=== PATIENT | female | born 1985 | race Caucasian/White ===

== ENCOUNTER 2024-12-27 10:55 | Emergency (ER) | payer SELFPAY ==
[2024-12-27 11:05] VITALS: BP 144/84; PULSE 88; RESP 16; TEMP 36.9; O2SAT 98; BMI 30.1
[2024-12-27 13:19] LABS: Eosinophils # 0.1 10^3/uL (0.0-0.8); Eosinophils % 2.9 %; Hematocrit 38.7 % (36-47); Lymphocytes # 0.6 10^3/uL (0.8-4.8); Lymphocytes % 18.4 %; Mean Corpuscular HGB Conc 33.3 g/dL (30-55); Mean Corpuscular Hemoglobin 27.4 pg (27-33); Mean Corpuscular Volume 82.3 fl (85-98); Mean Platelet Volume 10.1 fL (7.4-10.4); Monocytes # 0.2 10^3/uL (0.2-0.9); Monocytes % 7.6 %; Neutrophils # 2.19 10^3/uL (1.8-7.7); Neutrophils % 69.5 %; Nucleated Red Blood Cells % 0 %; Platelet Count 115 10^3/cmm (157-399); Red Cell Distribution Width 12.8 % (12.1-15.1); White Blood Count 3.15 10^3/uL (3.29-11.43)
[2024-12-27 13:23] LABS: HCG, Serum Qual Negative (Negative)
--- NOTE | 2024-12-27 13:23 | W.ED.ABDPA2 ---
Documented by User: [email or web address] Gunn 12/27/24 17:36 HPI - Abdominal Pain General: Chief Complaint: Abdominal Pain Stated Complaint: gall stone stuck in bowel duct Time Seen by Provider: 12/27/24 13:14 Source: patient Mode of arrival: ambulatory Limitations: no limitations History of Present Illness: Patient is a 39-year-old female presents to ED today stating yesterday she was seen at [place] the ED and diagnosed with what sounds like choledocholithiasis. She was recommended transfer for an ERCP but she declined. Patient states she is here at [facility] today hoping we can perform this procedure. Patient states yesterday she was having pain to her right upper quadrant and epigastric region as well as nausea and vomiting. She does not like her pain today is significantly improved. She does still feel nauseous. She has not had any active episodes of vomiting. She has not had fevers. She arrives with stable vital signs. MD elicited complaint: abdominal pain Onset (ago): day(s) Pain Consistency: now resolved (or minimally present) Location: Epigastric Severity: mild Quality: sharp Radiation: none Migration to: no migration Exacerbating factors: nothing Relieving factors: nothing Associated Symptoms: Reports nausea; Denies change in bowel habits, chills, diarrhea, dysuria, fever(s), heartburn, hematemesis and vomiting Related Data Home Medications ?Medication ?Instructions ?Recorded ?Confirmed alprazolam 0.5 mg tablet 0.5 mg PO BID 12/27/24 12/27/24 buprenorphine 2 mg-naloxone 0.5 mg 1 film buccal BID 12/27/24 12/27/24 sublingual film (Suboxone) Allergies Allergy/AdvReac Type Severity Reaction Status Date / Time procaine (From Novocain) Allergy Unknown Verified 12/27/24 11:10 Review of Systems Const: Denies: fever(s), chills, body aches, fatigue or malaise Card: Denies: chest pain Resp: Denies: dyspnea GI: Reports: abdominal pain and nausea; Denies: vomiting, hematemesis, heartburn, diarrhea or change in bowel habits : Denies: flank pain, difficulty voiding, dysuria, urinary frequency, urinary urgency or urinary hesitancy Musc: Denies: neck pain, back pain, extremity pain, extremity swelling, joint pain, joint swelling or joint redness Skin/Breast: Denies: rash Neuro: Denies: headache(s) or dizziness Physical Exam Const: COMMON NORMALS: no acute distress, patient oriented x3, no limitations, alert and well nourished GENERAL APPEARANCE: cooperative ORIENTATION/CONSCIOUSNESS: Yes awake, Yes oriented to person, Yes oriented to place and Yes oriented to time Resp: COMMON NORMALS: normal respiratory effort and clear to auscultation bilaterally AUSCULTATION: clear to auscultation bilaterally Cardio: COMMON NORMALS: regular rate and regular rhythm RATE: regular rate RHYTHM: regular rhythm GI: COMMON NORMALS: Normal to inspection, nondistended, normoactive bowel sounds present, Soft to palpation, No hepatosplenomegaly present and no masses INSPECTION: Yes normal to inspection AUSCULTATION: Yes normoactive bowel sounds PALPATION: Yes Soft to palpation, Yes Tenderness to palpation present (GI) (mild epigastric ), No Guarding due to palpation present (GI), No Rigid due to palpation and Yes No hepatosplenomegaly present : COMMON NORMALS: Yes no CVA tenderness BLADDER/KIDNEY EXAM: Yes no CVA tenderness Back/Pelvis: COMMON NORMALS: no CVA tenderness Neuro: COMMON NORMALS: patient oriented x3 SENSORIUM/ORIENTATION: Yes alert, Yes oriented to person, Yes oriented to place and Yes oriented to time Course Vital Signs: Vital signs: Vital Signs Temperature 98.5 F 12/27/24 11:05 Pulse Rate 88 12/27/24 11:05 Respiratory Rate 16 12/27/24 11:05 Blood Pressure 167/85 12/27/24 13:44 Pulse Oximetry 97 12/27/24 15:02 Oxygen Delivery Me thod Room Air 12/27/24 11:05 MDM - Abdominal Pain Medical Decision Making Patient's ultrasound and labs from [facility] were received. It looks like her gallbladder ultrasound then showed cholelithiasis but with no other acute findings. She had a normal measuring CBD. Her blood work from their visit is similar to today's without any distinguishable increasing or decreasing pattern. Today's ultrasound showing cholelithiasis without evidence for acute cholecystitis. She had no intrahepatic bile duct dilatation. She had a normal common bile duct size. I had discussed with patient all these results with a plan for CT imaging after speaking to Dr. Arteaga. Patient required US IV after multiple failed attempts and during this patient became very upset reporting that nothing had been done for her and she wants to leave as she has a child to get home to. Multiple nurses as well as myself went in room to speak to her. I apologized for any delays she had in her care but that we had performed labs, US, and discussed plan for CT along with general surgery consult if needed. She repeatedly stated she wanted to leave immediately. I asked her if we could get her information regarding follow up but she declines and wants to leave. She signed AMA paperwork prior to leaving. Medical Records I reviewed the patient's medical records. Lab Data I reviewed the patient's lab results. 12/27/24 13:05 12/27/24 13:05 Labs/Radiology: Radiology Impressions Gallbladder Ultrasound 12/27/24 14:22 IMPRESSION: 1. Cholelithiasis without evidence for acute cholecystitis. 2. No intrahepatic bile duct dilatation. Normal size common bile duct. Laboratory Results WBC 3.15 10^3/uL (3.29-11.43) L 12/27/24 13:05 RBC 4.70 10^6/uL (3.85-5.65) 12/27/24 13:05 Hgb 12.90 g/dL (11.27-16.99) 12/27/24 13:05 Hct 38.7 % (36-47) 12/27/24 13:05 MCV 82.3 fl (85-98) L 12/27/24 13:05 MCH 27.4 pg (27-33) 12/27/24 13:05 MCHC 33.3 g/dL (30-55) 12/27/24 13:05 RDW 12.8 % (12.1-15.1) 12/27/24 13:05 Plt Count 115 10^3/cmm (157-399) L 12/27/24 13:05 MPV 10.1 fL (7.4-10.4) 12/27/24 13:05 Neut % (Auto) 69.5 % 12/27/24 13:05 Lymph % (Auto) 18.4 % 12/27/24 13:05 [place] % (Auto) 7.6 % 12/27/24 13:05 Eos % (Auto) 2.9 % 12/27/24 13:05 Baso % (Auto) 1.0 % 12/27/24 13:05 Neut # (Auto) 2.19 10^3/uL (1.8-7.7) 12/27/24 13:05 Lymph # (Auto) 0.6 10^3/uL (0.8-4.8) L 12/27/24 13:05 [place] # (Auto) 0.2 10^3/uL (0.2-0.9) 12/27/24 13:05 Eos # (Auto) 0.1 10^3/uL (0.0-0.8) 12/27/24 13:05 Baso # (Auto) 0.0 10^3/uL (0.0-0.1) 12/27/24 13:05 Nucleated RBC % (auto) 0 % 12/27/24 13:05 Nucleated RBCs # 0.0 /100WBC 12/27/24 13:05 Sodium 136 mmol/L (136-145) 12/27/24 13:05 Potassium 3.0 mmol/L (3.5-5.1) L 12/27/24 13:05 Chloride 98 mmol/L (98-107) 12/27/24 13:05 Carbon Dioxide 24 mmol/L (22-29) 12/27/24 13:05 Anion Gap 17.0 (5-19) 12/27/24 13:05 BUN 10 mg/dL (6-20) 12/27/24 13:05 Creatinine 0.5 mg/dL (0.5-0.9) 12/27/24 13:05 GFR Calculation 138.8 mL/min (90-130) H 12/27/24 13:05 Glucose 65 mg/dL (65-115) 12/27/24 13:05 Calculated Osmolality 279 mOsm/kg (285-295) L 12/27/24 13:05 Calcium 8.9 mg/dL (8.5-10.5) 12/27/24 13:05 Total Bilirubin 4.3 mg/dL (0.15-1.2) H 12/27/24 13:05 AST 243 U/L (0-32) H 12/27/24 13:05 ALT 399 U/L (0-33) H 12/27/24 13:05 Alkaline Phosphatase 217 U/L (35-105) H 12/27/24 13:05 Total Protein 7.2 g/dL (6.6-8.7) 12/27/24 13:05 Albumin 4.1 g/dL (3.5-5.2) 12/27/24 13:05 Globulin 3.1 g/dL (1.3-4.6) 12/27/24 13:05 Lipase 16 U/L (13-60) 12/27/24 13:05 HCG, Qual Negative (Negative) 12/27/24 13:05 Urine Color Dark yellow (Yellow) A 12/27/24 14:10 Urine Appearance Clear (CLEAR) 12/27/24 14:10 Urine pH 5.5 (5-7) 12/27/24 14:10 Ur Specific [place] 1.024 (1.005-1.030) 12/27/24 14:10 Urine Protein 1+ (Negative) A 12/27/24 14:10 Urine Glucose (UA) Negative (Normal) 12/27/24 14:10 Urine Ketones 3+ (Negative) H 12/27/24 14:10 Urine Blood Negative (Negative) 12/27/24 14:10 Urine Nitrate Positive (Negative) A 12/27/24 14:10 Urine Bilirubin 2+ (Negative) H 12/27/24 14:10 Urine Urobilinogen 1.0 mg/dL (Negative) 12/27/24 14:10 Ur Leukocyte Esterase Trace (Negative) A 12/27/24 14:10 Urine RBC 0-2 /hpf (0-2) 12/27/24 14:10 Urine WBC 21-50 /hpf (0-5) H 12/27/24 14:10 Ur Squamous Epith Cells 11-20 /hpf (0-5) H 12/27/24 14:10 Amorphous Sediment Not Reportable 12/27/24 14:10 Urine Bacteria 1+ /hpf (NONE) H 12/27/24 14:10 Hyaline Casts 1.65 /lpf 12/27/24 14:10 Hepatitis A IgM Ab Non-reactive (Nonreactive) 12/27/24 13:05 Hep Bs Antigen Non-reactive (Nonreactive) 12/27/24 13:05 Hep B Core IgM Ab Non-reactive (Nonreactive) 12/27/24 13:05 Hepatitis C Antibody Reactive (Nonreactive) H 12/27/24 13:05 All radiology interpretation(s) finalized by discharge Discharge Plan Discharge Patient Disposition: Left Against Medical Advice Clinical Impression: Elevated LFTs, Hepatitis C, Cholelithiasis Condition: Stable Prescriptions: No Action alprazolam 0.5 mg tablet 0.5 mg PO BID buprenorphine-naloxone [Suboxone] 2-0.5 mg film 1 film buccal BID Print Language: Marshallese Coding Level of Care Code ED Vacuum Worker for Chg Fwd Documented by User: Douglas Arteaga DO 12/28/24 06:11 HPI - Abdominal Pain General: Chief Complaint: Abdominal Pain Stated Complaint: gall stone stuck in bowel duct Time Seen by Provider: 12/27/24 13:14 Related Data Home Medications ?Medication ?Instructions ?Recorded ?Confirmed alprazolam 0.5 mg tablet 0.5 mg PO BID 12/27/24 12/27/24 buprenorphine 2 mg-naloxone 0.5 mg 1 film buccal BID 12/27/24 12/27/24 sublingual film (Suboxone) Allergies Allergy/AdvReac Type Severity Reaction Status Date / Time procaine (From Novocain) Allergy Unknown Verified 12/27/24 11:10 Course Vital Signs: Vital signs: Vital Signs Temperature 98.5 F 12/27/24 11:05 Pulse Rate 88 12/27/24 11:05 Respiratory Rate 16 12/27/24 11:05 Blood Pressure 167/85 12/27/24 13:44 Pulse Oximetry 97 12/27/24 15:02 Oxygen Delivery Me thod Room Air 12/27/24 11:05 MDM - Abdominal Pain Medical Decision Making Patient's ultrasound and labs from [facility] were received. It looks like her gallbladder ultrasound then showed cholelithiasis but with no other acute findings. She had a normal measuring CBD. Her blood work from their visit is similar to today's without any distinguishable increasing or decreasing pattern. Today's ultrasound showing cholelithiasis without evidence for acute cholecystitis. She had no intrahepatic bile duct dilatation. She had a normal common bile duct size. I had discussed with patient all these results with a plan for CT imaging after speaking to Dr. Arteaga. Patient required US IV after multiple failed attempts and during this patient became very upset reporting that nothing had been done for her and she wants to leave as she has a child to get home to. Multiple nurses as well as myself went in room to speak to her. I apologized for any delays she had in her care but that we had performed labs, US, and discussed plan for CT along with general surgery consult if needed. She repeatedly stated she wanted to leave immediately. I asked her if we could get her information regarding follow up but she declines and wants to leave. She signed AMA paperwork prior to leaving. Chart reviewed and patient discussed with midlevel. Agree with assessment and plan. Lab Data 12/27/24 13:05 12/27/24 13:05 Labs/Radiology: Radiology Impressions Gallbladder Ultrasound 12/27/24 14:22 IMPRESSION: 1. Cholelithiasis without evidence for acute cholecystitis. 2. No intrahepatic bile duct dilatation. Normal size common bile duct. Laboratory Results WBC 3.15 10^3/uL (3.29-11.43) L 12/27/24 13:05 RBC 4.70 10^6/uL (3.85-5.65) 12/27/24 13:05 Hgb 12.90 g/dL (11.27-16.99) 12/27/24 13:05 Hct 38.7 % (36-47) 12/27/24 13:05 MCV 82.3 fl (85-98) L 12/27/24 13:05 MCH 27.4 pg (27-33) 12/27/24 13:05 MCHC 33.3 g/dL (30-55) 12/27/24 13:05 RDW 12.8 % (12.1-15.1) 12/27/24 13:05 Plt Count 115 10^3/cmm (157-399) L 12/27/24 13:05 MPV 10.1 fL (7.4-10.4) 12/27/24 13:05 Neut % (Auto) 69.5 % 12/27/24 13:05 Lymph % (Auto) 18.4 % 12/27/24 13:05 [place]bot % (Auto) 7.6 % 12/27/24 13:05 Eos % (Auto) 2.9 % 12/27/24 13:05 Baso % (Auto) 1.0 % 12/27/24 13:05 Neut # (Auto) 2.19 10^3/uL (1.8-7.7) 12/27/24 13:05 Lymph # (Auto) 0.6 10^3/uL (0.8-4.8) L 12/27/24 13:05 [place]bot # (Auto) 0.2 10^3/uL (0.2-0.9) 12/27/24 13:05 Eos # (Auto) 0.1 10^3/uL (0.0-0.8) 12/27/24 13:05 Baso # (Auto) 0.0 10^3/uL (0.0-0.1) 12/27/24 13:05 Nucleated RBC % (auto) 0 % 12/27/24 13:05 Nucleated RBCs # 0.0 /100WBC 12/27/24 13:05 Sodium 136 mmol/L (136-145) 12/27/24 13:05 Potassium 3.0 mmol/L (3.5-5.1) L 12/27/24 13:05 Chloride 98 mmol/L (98-107) 12/27/24 13:05 Carbon Dioxide 24 mmol/L (22-29) 12/27/24 13:05 Anion Gap 17.0 (5-19) 12/27/24 13:05 BUN 10 mg/dL (6-20) 12/27/24 13:05 Creatinine 0.5 mg/dL (0.5-0.9) 12/27/24 13:05 GFR Calculation 138.8 mL/min (90-130) H 12/27/24 13:05 Glucose 65 mg/dL (65-115) 12/27/24 13:05 Calculated Osmolality 279 mOsm/kg (285-295) L 12/27/24 13:05 Calcium 8.9 mg/dL (8.5-10.5) 12/27/24 13:05 Total Bilirubin 4.3 mg/dL (0.15-1.2) H 12/27/24 13:05 AST 243 U/L (0-32) H 12/27/24 13:05 ALT 399 U/L (0-33) H 12/27/24 13:05 Alkaline Phosphatase 217 U/L (35-105) H 12/27/24 13:05 Total Protein 7.2 g/dL (6.6-8.7) 12/27/24 13:05 Albumin 4.1 g/dL (3.5-5.2) 12/27/24 13:05 Globulin 3.1 g/dL (1.3-4.6) 12/27/24 13:05 Lipase 16 U/L (13-60) 12/27/24 13:05 HCG, Qual Negative (Negative) 12/27/24 13:05 Urine Color Dark yellow (Yellow) A 12/27/24 14:10 Urine Appearance Clear (CLEAR) 12/27/24 14:10 Urine pH 5.5 (5-7) 12/27/24 14:10 Ur Specific [place] 1.024 (1.005-1.030) 12/27/24 14:10 Urine Protein 1+ (Negative) A 12/27/24 14:10 Urine Glucose (UA) Negative (Normal) 12/27/24 14:10 Urine Ketones 3+ (Negative) H 12/27/24 14:10 Urine Blood Negative (Negative) 12/27/24 14:10 Urine Nitrate Positive (Negative) A 12/27/24 14:10 Urine Bilirubin 2+ (Negative) H 12/27/24 14:10 Urine Urobilinogen 1.0 mg/dL (Negative) 12/27/24 14:10 Ur Leukocyte Esterase Trace (Negative) A 12/27/24 14:10 Urine RBC 0-2 /hpf (0-2) 12/27/24 14:10 Urine WBC 21-50 /hpf (0-5) H 12/27/24 14:10 Ur Squamous Epith Cells 11-20 /hpf (0-5) H 12/27/24 14:10 Amorphous Sediment Not Reportable 12/27/24 14:10 Urine Bacteria 1+ /hpf (NONE) H 12/27/24 14:10 Hyaline Casts 1.65 /lpf 12/27/24 14:10 Hepatitis A IgM Ab Non-reactive (Nonreactive) 12/27/24 13:05 Hep Bs Antigen Non-reactive (Nonreactive) 12/27/24 13:05 Hep B Core IgM Ab Non-reactive (Nonreactive) 12/27/24 13:05 Hepatitis C Antibody Reactive (Nonreactive) H 12/27/24 13:05 Discharge Plan Discharge Patient Disposition: Left Against Medical Advice Clinical Impression: Elevated LFTs, Hepatitis C, Cholelithiasis Condition: Stable Prescriptions: No Action alprazolam 0.5 mg tablet 0.5 mg PO BID buprenorphine-naloxone [Suboxone] 2-0.5 mg film 1 film buccal BID Print Language: Marshallese Coding Level of Care Code ED Vacuum Worker for Shama Vasquez
[2024-12-27 13:28] LABS: Alanine Aminotransferase 399 U/L (0-33); Albumin Level 4.1 g/dL (3.5-5.2); Alkaline Phosphatase 217 U/L (35-105); Aspartate Amino Transferase 243 U/L (0-32); Blood Urea Nitrogen 10 mg/dL (6-20); Calcium 8.9 mg/dL (8.5-10.5); Carbon Dioxide 24 mmol/L (22-29); Chloride 98 mmol/L (98-107); Creatinine Clr Calc Pharmacy 151.4722; Globulin 3.1 g/dL (1.3-4.6); Glomerular Filtration Rate 138.8 mL/min (90-130); Glucose 65 mg/dL (65-115); Lipase 16 U/L (13-60); Osmolality Calculated 279 mOsm/kg (285-295); Sodium 136 mmol/L (136-145); Total Bilirubin 4.3 mg/dL (0.15-1.2); Total Protein 7.2 g/dL (6.6-8.7)
[2024-12-27 13:44] VITALS: BP 167/85; O2SAT 98
--- NOTE | 2024-12-27 14:22 | US_ITS ---
WS: [id number] RIGHT UPPER QUADRANT ULTRASOUND HISTORY: elevated LFTs COMPARISON: None available. Liver: 17.9 cm in length. Normal size liver and echogenicity. No bile duct dilatation or mass. Portal Vein: Normal hepatopetal flow with monophasic waveform. Gallbladder: Gallbladder is slightly contracted. Large stone within the gallbladder lumen. No pericholecystic fluid or gallbladder wall thickening. CBD: 0.4 cm Pancreas: Completely obscured pancreas by bowel gas. Right kidney: 11.0 cm in length. Normal size and echogenicity. No hydronephrosis or mass. Aorta and IVC: Unremarkable abdominal aorta and IVC. No ascites. US/US gall bladder [id number] IMPRESSION: 1. Cholelithiasis without evidence for acute cholecystitis. 2. No intrahepatic bile duct dilatation. Normal size common bile duct.
[2024-12-27 14:28] LABS: Bilirubin Urine 2+ (Negative); Blood Urine Negative (Negative); Glucose Urine UA Negative (Normal); Ketones Urine 3+ (Negative); Leukocyte Esterase Urine Trace (Negative); Nitrate Urine Positive (Negative); Protein Urine 1+ (Negative); Specific Gravity, Urine 1.024 (1.005-1.030); Urine Appearance Clear (CLEAR); Urine Color Dark Yellow (Yellow); pH Urine 5.5 (5-7)
[2024-12-27 14:31] LABS: Add Urine Microscopic? YES; Bacteria Urine 1+ /hpf; Hyaline Casts Urine 1.65 /lpf; RBC Urine 0-2 /hpf (0-2); WBC Urine 21-50 /hpf (0-5)
[2024-12-27 14:58] LABS: Hepatitis A Antibody IgM Non-Reactive (Nonreactive); Hepatitis B Core IgM Non-Reactive (Nonreactive); Hepatitis B Surface Antigen Non-Reactive (Nonreactive); Hepatitis C Virus Antibody Reactive (Nonreactive)
[2024-12-27 15:02] VITALS: O2SAT 97
[2024-12-29 13:30] LABS: HEP C RNA Viral Load Quant 36200 IU/mL (NOT DETECTED); HEP C RNA Viral Load Quant 4.56 Log IU/mL (NOT DETECTED)
== END 2024-12-27 17:11 | disposition left against medical advice (07) ==
PROVIDERS: Emergency Provider Physician Assistant
DX: K80.20 Calculus of gallbladder without cholecystitis without obstruction (principal); B19.20 Unspecified viral hepatitis C without hepatic coma; R74.01 Elevation of levels of liver transaminase levels
CPT/HCPCS: 36415; 76705; 80053; 80074; 81001; 83690; 84703; 85025; 87522; 99284